=== PATIENT | male | born 1995 | race Hispanic/Latino ===

== ENCOUNTER 2017-05-26 11:56 | Observation (INO) | payer SELFPAY ==
[2017-05-26 12:26] LABS: #Basophils 0.1 thou/uL (0.0-0.2); #Eosinphils 0.1 thou/uL (0.0-0.7); #Lymphocytes 3.9 thou/uL (1.20-3.40); #Monocytes 0.7 thou/uL (0.11-0.59); #Neutrophils 3.1 thou/uL (1.40-6.50); %Eosinophils 1.6 % (0.0-10.0); %Lymphocytes 49.6 % (28.0-48.0); %Monocytes 8.7 % (0.0-4.0); Hematocrit 49.2 % (42.0-52.0); Mean Platelet Volume 7.2 fL (7.4-10.4); Red Blood Cell (RBC) Count 5.57 mill/uL (4.00-5.20); White Blood Cell (WBC) Count 7.8 thou/uL (4.8-10.8)
--- NOTE | 2017-05-26 12:45 | RAD ---
CHEST ONE VIEW: HISTORY: Emergency exam. Syncope. Fall. Chest pain. COMPARISON: None. FINDINGS: The lungs are clear. No pneumothorax or effusion. The cardiac silhouette and mediastinal contour i s within normal limits. IMPRESSION: No acute intrathoracic abnormality. POS: [facility]
[2017-05-26] MEDS ORDERED: Diazepam 10 MG/2 ML SYRINGE ONE (12:49)
[2017-05-26 12:50] LABS: ALT (SGPT) 23 U/L (8-55); AST (SGOT) 30 U/L (5-34); Alkaline Phosphatase 92 U/L (Less than 750); Anion Gap 8 mmol/L (10-20); BUN (Urea Nitrogen) 13 mg/dL (8.9-20.6); Bilirubin, Total 0.7 mg/dL (0.2-1.2); Calc. Creatinine Clearance 0 mL/min (70-130); Calcium 9.8 mg/dL (7.8-10.44); Carbon Dioxide 30 mmol/L (22-29); Chloride 102 mmol/L (98-107); Estimated GFR-MDRD Greater than 90; Globulin 3.6 g/dL (2.4-3.5); Protein, Total 8.3 g/dL (6.0-8.3)
[2017-05-26] MEDS ORDERED: Ketorolac Tromethamine 30 MG/ML VIAL ONE (12:50)
[2017-05-26 13:02] LABS: Troponin I 0.057 ng/mL (< 0.028)
[2017-05-26] MEDS ORDERED: ISOVUE-370 76%-LOCM 1 ML ONE (13:33)
[2017-05-26 14:13] LABS: Bilirubin Negative (Negative); Blood, Urine Negative (Negative); Glucose, Urine (Dipstick) Negative (Negative); Ketone, Urine Negative (Negative); Nitrite Negative (Negative); Protein, Urine (Dipstick) Negative (Neg-Trace)
[2017-05-26 14:26] LABS: Amphetamine Not Detected (NotDetected); Methadone Not Detected (NotDetected); Methamphetamine Not Detected (NotDetected)
[2017-05-26] MEDS ORDERED: Acetaminophen 325 MG TAB PO PRN (15:04)
[2017-05-26] MEDS ORDERED: Ondansetron ODT 4 MG TAB PO PRN (15:04)
[2017-05-26] MEDS ORDERED: Nitroglycerin 0.4 MG TAB (25 Tab Bottle) PO PRN (15:04)
[2017-05-26] MEDS ORDERED: Ondansetron HCl/PF 4 MG/2 ML Vial IVP PRN (15:04)
[2017-05-26] MEDS ORDERED: Cyclobenzaprine 10 MG TAB PO PRN ×2 (15:08→21:00)
[2017-05-26 15:11] VITALS: BMI 26.2
[2017-05-26] MEDS ORDERED: Cyclobenzaprine 10 MG TAB PO SCH (15:15)
[2017-05-26] MEDS ORDERED: Aspirin 325 MG TAB PO SCH (15:15)
[2017-05-26 15:40] LABS: Troponin I 0.048 ng/mL (< 0.028)
--- NOTE | 2017-05-26 17:08 | HP-2 ---
DATE OF ADMISSION: 05/26/2017 The patient is seen at 13:45. CODE STATUS: FULL. PRIMARY CARE PHYSICIAN: Dr. Castaneda. ATTENDING PHYSICIAN: Dillon Nieves M.D. RESIDENT: Jennifer Nettles M.D., PGY-3 HISTORIAN: Patient. CHIEF COMPLAINT: Neck pain. HISTORY OF PRESENT ILLNESS: Patient is a pleasant 21-year-old male with no significant past medical history who presents with right neck tension and pain since 2:00 a.m. He states that he woke with neck pain, felt that he had slept strangely on that side. He got out of bed and his mom reports that he fell about short of breath and recovered shortly after. He states that he remembers the incident entirely and denies syncope. He also denies any kind of chest pain during this episode or any convulsive seizure-like activity. The patient states that he was ill with URI type symptoms approximately 1 month ago and his dad has recently been diagnosed with flu. He states that for his neck pain, he applied some BenGay and took a shower and he continued to have neck pain, so he decided to come into the Emergency Department. He does have a significant family history of IL at an early age on the maternal side. His grandfather of an IL at age 47 and several cousins who of IL at age 30 and 41. PAST MEDICAL HISTORY: None. PAST SURGICAL HISTORY: None. ALLERGIES: None. MEDICATIONS: None. FAMILY HISTORY: Maternal grandfather IL at age 47. No history of sudden cardiac at age less than 20. No known history of hypertrophic cardiomyopathy. First cousins of IL at age 30 and 41. SOCIAL HISTORY: Denies tobacco use, smokeless tobacco use. He drinks approximately six pack a week of beer, denies any drug use. He works with his father in [employer]. He does not have any children and is not . As mentioned, his father is recently diagnosed with flu and he was ill approximately 1 month ago. REVIEW OF SYSTEMS: Ten point review of systems was conducted. Pertinent positives are mentioned in the HPI. All others are negative. PHYSICAL EXAMINATION: VITAL SIGNS: Blood pressure is 117/64, pulse 52, respirations 17, T-max 98.4, pulse ox 98% on room air. Current weight is 69.85 kilograms. GENERAL: The patient is alert and oriented x3. He does not appear in distress. Well-developed, well-nourished, appropriately interactive during the interview and exam. EYES: Pupils are equally round and reactive to light and accommodation. Extraocular muscles intact. Conjunctiva within normal limits. ENT: Nasal mucosa and oropharynx moist without erythema. NECK: Supple, no lymphadenopathy, no thyromegaly. Endorses muscular tenderness of the right neck paraspinally. No tenderness to palpation over the spine. Patient states he has difficulty turning his neck to the right side due to pain; however, he is able to turn his neck freely to the left side. CARDIOVASCULAR: Regular rhythm. Rate is slightly bradycardic at 52, 2/6 systolic murmur in the second intercostal space on the left side midclavicular line. No gallops. Radial pulses +2. RESPIRATIONS: Normal effort, no retractions. LUNGS: Clear to auscultation bilaterally. SKIN: Warm and dry, free of cyanosis or lesions. ABDOMEN: Soft and nontender to palpation. Bowel sounds present in all 4 quadrants. EXTREMITIES: No cyanosis, clubbing or edema. MUSCULOSKELETAL: Structure within normal limits. Full range of motion. NEUROLOGIC: No focal deficits. PSYCHIATRIC: Appropriate. LABORATORY DATA AND IMAGIN. White count 7.8, hemoglobin 16.7, hematocrit 49.2, and platelets 271. Sodium 136, potassium 4, chloride 102, bicarbonate 30, BUN 13, creatinine 0.99, glucose 87, calcium 9.8, AST 30, ALT 23, alkaline phosphatase 92, total bilirubin 0.2, total protein 8.3, albumin 4.7. CK was 156, CK-MB 2.1, troponin 0.057. 2. UDS was negative. D-dimer was 0.27, which is negative. 3. EKG showed ST elevation in V2, and V4 through V6. 4. Chest x-ray no acute findings. ASSESSMENT AND PLAN: This is a 21-year-old male with: 1. Elevated cardiac enzymes. The patient states that he does not have any chest pain and does not endorse any history of chest pain prior to arriving to the hospital. We will place him under observation on the telemetry unit secondary to these findings and positive EKG findings. Patient will receive aspirin and statin. We will continue to trend his troponins and CK-MB. Differential includes pericarditis, myocarditis versus acute coronary syndrome. His UDS was negative as well as D-dimer and CK. Cardiology consulted as well. CTA of neck to rule out dissection which was negative. 2. New cardiac murmur, we will obtain an echocardiogram. 3. Neck strain. We will give the patient Flexeril for his pain. Disposition and length of stay is less than 2 days. Symptomatic medications will be provided. History and physical exam as well as management was discussed with Dr. Nieves. GABY
[2017-05-26 18:42] LABS: Troponin I 0.046 ng/mL (< 0.028)
--- NOTE | 2017-05-26 20:33 | CT ---
CT ANGIO NECK WITH IV CONTRAST AND 3D POSTPROCESSIN05/26/17 HISTORY: Neck pain. Presyncope. Concern for right sided dissection. FINDINGS: There is good flow and normal caliber of the common carotid, internal carotid, external carotid, and vertebral arteries. A dominant left vertebral artery is present. The visualized portions of the int racranial vertebrobasilar and carotid systems are normal. No evidence of dissection or stenosis is s een. Alignment of the vertebral bodies is normal. The visualized lung barrera are clear. IMPRESSION: Normal exam. This study was interpreted in consultation with Dr. Meg Avina (neuroradiologist) who concurs. POS: [facility]
[2017-05-26] MEDS ORDERED: Atorvastatin Calcium 40 MG TAB PO SCH (21:00)
[2017-05-27 05:05] LABS: Anion Gap 8 mmol/L (10-20); BUN (Urea Nitrogen) 11 mg/dL (8.9-20.6); Calc. Creatinine Clearance 140 mL/min (70-130); Calcium 9.3 mg/dL (7.8-10.44); Carbon Dioxide 28 mmol/L (22-29); Chloride 106 mmol/L (98-107); Cholesterol 109 mg/dl (< 200 Desired); Estimated GFR-MDRD Greater than 90; LDL Cholesterol, Calculated 56 mg/dL
--- NOTE | 2017-05-27 06:06 | CON ---
DATE OF CONSULTATION: 05/26/2017 ROOM NUMBER: [id number] REFERRING PHYSICIAN: Jennifer Nettles MD REASON FOR CARDIOLOGY CONSULTATION: Elevated troponin. HISTORY OF PRESENT ILLNESS: Mr. Kowalski is a 21-year-old male with no significant medical history, presented to emergency department after near syncopal episode. He started having sharp pain in his right neck today around 10:00 a.m. At that time, he started having shortness of breath, hard to breathe which caused him almost blacked out. After the episode, he took Tylenol 3 for the pain control that did not improve his symptoms so he decided to present to the emergency department. He denies any chest pain or discomfort in his chest, palpitation or fluttering in his chest, dizziness, lightheadedness , nausea, vomiting or numbness in the left arm during the episode. He denies any head trauma or any muscle pain or any injury prior to this episode. During the initial Cardiology's consult assessment, he denies any shortness of breath or dizziness, lightheadedness, near syncope episode or any other Cardiology complaints. He still complained of mild to moderate pain, sharp pain in his right neck. He could get up to the wheelchair without any difficulties except the neck pain today. PATIENT MEDICAL HISTORY: Bilateral wrist fracture. At that time, he was prescribed Tylenol #3 which he uses today. FAMILY HISTORY: Noncontributory. SOCIAL HISTORY: Patient denies any tobacco abuse or illicit drug abuse. He enjoys drinking occasionally with his family and friends. ALLERGIES: No known drug allergy. CURRENT MEDICATIONS: He does take any medication at this time. REVIEW OF SYSTEMS: The following complete review of systems was negative, unless otherwise mentioned in the HPI or below. Constitutional: Weight loss or gain, sense of well being, ability to conduct usual activities, exercise tolerance. Skin: Rash, itching, change in hair growth or loss, nail changes, breast lumps, tenderness, swelling, nipple discharge. Eyes: Vision change, double vision, tearing, blind spots, pain. HEENT: Headaches, vertigo, lightheadedness, nose bleeding, cold, obstruction, discharge, dental difficulty , gingival bleeding, denture, neck stiffness, pain, tenderness, mass in the thyroid or other areas. Cardiovascular: Precordial pain, substernal distress, palpitations, syncope, dyspnea on exertion, orthopnea, nocturnal dyspnea, edema , cyanosis, hypertension, heart murmur, varicosis, claudication. Respiratory: Pain, shortness of breath, wheezing, stridor, cough, hemoptysis, fever or night sweats. Gastrointestinal: Poor appetite, dysphagia, indigestion, abdominal pain, heartburn, eructation, nausea, vomiting, jaundice, constipation, diarrhea , blood in stool, or recent change in the bowel habit. Genitourinary: Urgency , frequency, dysuria, nocturia, hematuria, polyuria, oliguria, unusual color of urine. Musculoskeletal: Extremities: Except his neck, negative of pain, swelling, redness or heat of muscle or joint, limitation on motion, muscular weakness, atrophy or cramps. Neurologic: Conversion, seizure, paralysis, tremor, incoordination, difficulty with memory or speech. Psychiatric: Emotional problem, anxiety, depression, previous psychiatric care, unusual perceptions, hallucinations. PHYSICAL EXAMINATION: VITAL SIGNS: Blood pressure 135/65, respiratory rate 16, pulse 58. O2 sat 99% , temperature 98.4. GENERAL: Well-developed, well-nourished without any acute distress. HEENT: Normocephalic, atraumatic. EYES: Extraocular muscle movements are intact. ENT: Oral and nose mucosa are moist without lesions. NEUROLOGIC: Alert, oriented x4, awake. Normal affect. Nonfocal. PSYCHIATRIC: Mood and affect are normal. The neck, lungs, cardiovascular, abdomen, musculoskeletal are going to be as follow, because the patient had to leave for stat CT scan. EKG quality assurance monitor chassis showing the sinus rhythm with heart rate of 58. LABORATORY DATA: WBC 7.8, hemoglobin 16.7, hematocrit 49.2, platelet 271. D- dimer less than 0.27. Sodium 136, potassium 4.0, BUN 17, creatinine 0.99, AST 30, ALT 23. CK-MB is 12.1, troponin 0.057 and 0.048. Chest x-ray revealed no acute intrathoracic abnormality. At this moment, he is undergoing a CTA at the neck. ASSESSMENT AND PLAN: 1. Near syncope which is according to the patient's report and symptom, the patient seems to having the vasovagal syncope episode around 10:00 today. At this time, the patient's condition is stable. We would like to continue to monitor. 2. Indeterminate troponin level. This level was not likely elevated to the ___ __ because due to the normal CK-MB level. 3. Neck pain. Patient is undergoing CT scan at this moment and managed by the primary care doctor. Patient is on the Flexeril as needed. Thank you very much for allowing the Cardiology Service to participate in the care of this patient. We will follow along with the patient care team and make further recommendations as appropriate. GABY
--- NOTE | 2017-05-27 06:10 | PDOC.FM ---
- Subjective Subjective: Mr. Kowalski is doing well this morning, has no complaints. Had no acute events overnight. Denies any chest pain, dyspnea, n/v/d/abd pain, diaphoresis, LE edema. Scheduled for stress test and echo this morning. - Objective Vital Signs & Weight: Vital Signs (12 hours) Temp Pulse Resp BP BP Pulse Ox 05/27/17 04:15 97.5 F L 43 L 18 105/58 L 98 05/26/17 23:49 97.7 F 44 L 16 105/53 L 97 05/26/17 19:30 98.5 F 52 L 16 05/26/17 19:18 98.5 F 52 L 16 125/62 98 05/26/17 18:48 98 Weight Weight 71.372 kg I&O: 05/25/17 05/26/17 05/27/17 06:59 06:59 06:59 Intake Total 240 Output Total 350 Balance -110 Result Diagrams: 05/26/17 12:12 05/27/17 04:17 EKG Reviewed by me: Yes <Mark Torres - Last Filed: 05/27/17 08:50> - Objective Vital Signs & Weight: Vital Signs (12 hours) Temp Pulse Resp BP BP BP BP 05/27/17 07:57 116/56 L 131/63 120/58 L 05/27/17 07:49 98.0 F 49 L 18 05/27/17 07:13 98.0 F 49 L 18 120/58 L 05/27/17 04:15 97.5 F L 43 L 18 105/58 L 05/26/17 23:49 97.7 F 44 L 16 105/53 L Pulse Ox 05/27/17 07:57 05/27/17 07:49 05/27/17 07:13 98 05/27/17 04:15 98 05/26/17 23:49 97 Weight Weight 157 lb 5.573 oz I&O: 05/26/17 05/27/17 05/28/17 06:59 06:59 06:59 Intake Total 240 Output Total 350 Balance -110 Result Diagrams: 05/26/17 12:12 05/27/17 04:17 <Aravind Gonzales - Last Filed: 05/27/17 11:24> Phys Exam - Physical Examination Constitutional: NAD HEENT: moist MMs, sclera anicteric Neck: no JVD, supple, full ROM Respiratory: no wheezing, no rales, no rhonchi, clear to auscultation bilateral Cardiovascular: RRR 2/6 systolic murmur Gastrointestinal: soft, non-tender, no distention, positive bowel sounds Musculoskeletal: no edema, pulses present Neurological: non-focal, normal sensation, moves all 4 limbs Psychiatric: normal affect, A&O x 3 <Mark Torres - Last Filed: 05/27/17 08:50> Dx/Plan (1) Cardiac enzymes elevated Code(s): R74.8 - ABNORMAL LEVELS OF OTHER SERUM ENZYMES Status: Acute Plan: Troponins: 0.057, 0.048, 0.[address] elevations in V2, V4-6 No recent or past history of chest pain, presents with neck pain and fam hx of early UT Started on Statin and Aspirin, PRN nitro CTA neck neg, CXR neg -cardiology consults -echo ordered -stress test this morning -continue monitoring symptoms and vitals (2) Newly recognized heart murmur Code(s): R01.1 - CARDIAC MURMUR, UNSPECIFIED Status: Acute Plan: Cardiology consulted and Echo ordered (3) Neck strain Code(s): S16.1XXA - STRAIN OF MUSCLE, FASCIA AND TENDON AT NECK LEVEL, INIT Status: Acute Plan: Flexeril for pain <Mark Torres - Last Filed: 05/27/17 08:50> Attending Addendum - Attending Addendum I personally evaluated the patient and discussed the management with Dr. Torres I agree with the History, Examination, Assessment and Plan documented above with any addition or exceptions noted below. Interesting case of 21 year old who presents with neck pain that appears to be muscular. While here, he got an EKG and troponin. The EKG has increased voltage and some precordial ST elevation V2-5. He also has an elevated troponin. Family history of early cardiac in 30's and 40's in grandfather and cousins. PE shows an RV lift and 2/6 JESSICA along aortic outflow track that disappears with valsalva. I think he has HOCM. He has a stress echo today. We have discussed this with cardiology, and will reassess him after the test. <Aravind Gonzales - Last Filed: 05/27/17 11:24>
--- NOTE | 2017-05-27 06:21 | HP ---
DATE OF ADMISSION: 05/26/2017 CHIEF COMPLAINT: Neck pain and fall. HISTORY OF PRESENT ILLNESS: This is a 21-year-old male with no previous past medical history who woke up this morning with severe right-sided aching sharp neck pain that did not radiate and was worse with any movement towards that side and better with no movement of the head. He was walking in his house when he looked to the right and felt very severe pain and immediately went to ground. He says he remembers again there, but his family is not sure about that. At that time, he is also experiencing perioral numbness and shortness of breath that lasted for sometime after the episode. He denies any other neurologic symptoms such as headache, vision changes, visual field issues, dysarthria, dysphagia, facial numbness besides the perioral area, loss of bowel or bladder incontinence, or any tongue biting. He was seen in the ED and in the ED, had a normal chest x-ray, but then had subsequently elevated troponin, and was admitted to the service. REVIEW OF SYSTEMS: A 12 point review of systems is negative except as specified in the HPI. For a complete review of systems, please see the resident 's H\T\P. PAST MEDICAL HISTORY: Negative. PAST SURGICAL HISTORY: Negative. SOCIAL HISTORY: Denies tobacco, ethanol or drug use. MEDICATIONS: None. ALLERGIES: No known drug allergies. FAMILY HISTORY: Positive for a couple of his cousins that have had early onset heart disease including a 31-year-old evidently had a PA while having a seizure and subsequently passed, a cousin that had PA at 44 and passed, first degree relative with a CABG in the 40s. PHYSICAL EXAMINATION: VITAL SIGNS: Temperature 98.4, pulse 48, respirations 16, 99% on room air, and BP 135/65. GENERAL: In no acute distress, resting comfortably in bed with deviation of the head, favoring the right side. EYES: No icterus or injection. ENT: Moist mucous membranes. No oral lesions. CARDIOVASCULAR: Regular rate and rhythm. Maybe a 1/6 systolic ejection murmur , does not change with augmentation maneuvers. He has no carotid bruit. RESPIRATORY: Clear to auscultation bilaterally without wheeze, rales or rhonchi. GASTROINTESTINAL: Bowel sounds positive. Nontender to palpation. GENITOURINARY: Deferred. MUSCULOSKELETAL: Again, he is having tenderness along either sternocleidomastoid. He refuses to turn his head to the right and says as long as he is sitting still, he is not hurting too bad. No reproducible chest wall tenderness. No other deformity or contracture. NEUROLOGIC: Cranial nerves II-XII intact and symmetric and each tested in detail, unable to fully assess cervical range of motion because of previously mentioned pain. Motor is 5/5 test in all distributions upper and lower extremity. Sensation is intact to light touch throughout as well. DTRs of brachial and patellar 2/4. No clonus in lower extremities. Coordination is normal. LABORATORY DATA: CBC with a normal white count, hematocrit and platelets. Coags with a D-dimer less than 0.27. Chemistry with a sodium 136, potassium 4, chloride 102, carbon dioxide 30, BUN 13, creatinine 0.99. CK 156. Initial troponin 0.057. Urine is negative. Urine drug screen is negative. LFTs are reassuring. Chest x-ray personally reviewed. It is clear without infiltrate or pneumothorax. The neck is not well visualized. ASSESSMENT AND PLAN: This is a 21-year-old male with: 1. Right-sided neck pain. Wide differential including just torticollis or muscle strain, cervical trauma, carotid dissection. With associated numbness, I am certainly more concerned about neurologic cause. I have low suspicion of dissection of the arch, but in light of the pain, we do need to really start to discuss with Radiology, I feel the best test to be a CTA of the neck. We will go ahead and consult. 2. Elevated troponin. The patient does not have any immediate cause for this. We will go ahead and consult Cardiology. Upon review of the EKG, I feel likely benign early repolarization, but we will obtain a TTE as well. We will go ahead and start on aspirin and statin, which hopefully will not need for some time. We get a lipid panel in the morning. 3. Deep venous thrombosis prophylaxis with sequential compression devices. N.p.o. for now. MTDD
--- NOTE | 2017-05-27 14:36 | PDOC.CTH ---
<Shiela Velasquez - Last Filed: 05/27/17 15:00> Cardiology Progress Note - Subjective The pt was seen and examined. No overnight events. No cardiac complaints. He finished Treadmill stress test without any cardiac complaints. Still complains of pain in his Rt neck with movement - Objective Vital Signs Temp Pulse Resp BP BP BP BP 05/27/17 13:17 05/27/17 11:44 98.5 F 52 L 18 121/75 05/27/17 07:57 116/56 L 131/63 120/58 L 05/27/17 07:49 98.0 F 49 L 18 05/27/17 07:13 98.0 F 49 L 18 120/58 L 05/27/17 04:15 97.5 F L 43 L 18 105/58 L Pulse Ox 05/27/17 13:17 98 05/27/17 11:44 98 05/27/17 07:57 05/27/17 07:49 05/27/17 07:13 98 05/27/17 04:15 98 Weight 157 lb 5.573 oz 05/26/17 05/27/17 05/28/17 06:59 06:59 06:59 Intake Total 240 Output Total 350 Balance -110 - Physical Examination General/Neuro: alert & oriented x3 Neck: no JVD present Lungs: CTA Heart: RRR Abdomen: soft (No edmea) - Telemetry Telemetry Rhythm: SR - Labs Result Diagrams: 05/26/17 12:12 05/27/17 04:17 Troponin/CKMB CK-MB (CK-2) 1.7 ng/mL (0-6.6) 05/26/17 18:03 Troponin I 0.046 ng/mL (< 0.028) H 05/26/17 18:03 - Assessment/Plan 1. Near syncopal episode - No episode during Treadmill stress test. 2. Indeterminate CE - No ECG changed on tele 3. Neck pain - Stable with pain medication; managed by PCP 4. HOCM - Echo result is pending Review of Systems - Review of Systems Constitutional: reports: no symptoms reported EENTM: reports: no symptoms reported Respiratory: reports: no symptoms reported Cardiac (ROS): reports: no symptoms reported ABD/GI: reports: no symptoms reported : reports: no symptoms reported Skin: reports: no symptoms reported Neurological: reports: no symptoms reported <Daisha Wills - Last Filed: 05/27/17 17:16> Cardiology Progress Note - Objective Vital Signs Temp Pulse Resp BP BP BP BP 05/27/17 16:01 98.4 F 53 L 16 116/58 L 05/27/17 13:17 05/27/17 11:44 98.5 F 52 L 18 121/75 05/27/17 07:57 116/56 L 131/63 120/58 L 05/27/17 07:49 98.0 F 49 L 18 05/27/17 07:13 98.0 F 49 L 18 120/58 L Pulse Ox 05/27/17 16:01 97 05/27/17 13:17 98 05/27/17 11:44 98 05/27/17 07:57 05/27/17 07:49 05/27/17 07:13 98 Weight 157 lb 5.573 oz 05/26/17 05/27/17 05/28/17 06:59 06:59 06:59 Intake Total 240 Output Total 350 900 Balance -110 -900 - Labs Result Diagrams: 05/26/17 12:12 05/27/17 04:17 Troponin/CKMB CK-MB (CK-2) 1.7 ng/mL (0-6.6) 05/26/17 18:03 Troponin I 0.046 ng/mL (< 0.028) H 05/26/17 18:03 - Assessment/Plan I have seen and evaluated the pt. I reveiwed the ECH and the stress test. Both are nl. No evidence of HOCM. Cardiac status is stable . Okay to d/c pt. to home . F/U with primary MD.
--- NOTE | 2017-05-27 16:01 | NM ---
MYOCARDIAL PERFUSION STUDY: DATE: 05/27/17. PROVIDED CLINICAL HISTORY: Abnormal troponin level. RADIOPHARMACEUTICAL: 30 mCi Technetium 99m labeled sestamibi IV stress. 9 mCi Technetium 99m labeled sestamibi IV rest. FINDINGS: There is normal, homogeneous distribution of radiotracer throughout the left ventricular myocardium at both stress and stress. Gated data demonstrate normal myocardial wall motion and thickening with calculated LEVF of 70%. TID is 0.98. IMPRESSION: 1. No scintigraphic evidence for ischemia. 2. Left ventricular ejection fraction 70%. POS: [facility]
[2017-05-27 16:05] VITALS: BP 116/58; TEMP 98.4
--- NOTE | 2017-05-28 06:01 | ADD-CON ---
ADDENDUM CARDIOLOGY CONSULTATION Please attach this to the dictation done yesterday by my nurse practitioner, Shiela. DATE OF CONSULTATION: 05/26/2017 INDICATION FOR CONSULTATION: A 21-year-old patient with slightly elevated cardiac enzymes and near syncopal episode. He actually is a very healthy gentleman. He has had workups evaluated. His exam ination is unremarkable. He had an echocardiogram, which shows no evidence of left ventricular hype rtrophy or hypertrophic obstructive cardiomyopathy. The valvular structures normal. He has a alen l ejection fraction. Stress test has been unremarkable, suspect his cardiac enzymes are slightly el evated, either due to his significant exercise in the past or some other etiology that may just be b aseline, but there is no indication of the patient suffered any myocardial infarction, has any evide nce of endocarditis. At this time, examination otherwise unremarkable and the patient should be cammie dy to be discharged home. From my cardiac standpoint, he appears to be very stable. The remainder of the assessment and plan on history and physical done by the nurse practitioner. We have discusse d the patient, I would agree with her assessment and plan of the patient.
--- NOTE | 2017-05-28 06:39 | DIS-2 ---
DATE OF ADMISSION: 05/26/2017 DATE OF DISCHARGE: 05/27/2017 RESIDENT: Mark Torres MD ADMITTING ATTENDING: Dillon Nieves MD DISCHARGE ATTENDING: Aravind Gonzales MD CONSULTS: Cardiology, Arminda Wills MD on 05/26/2017. PROCEDURES: 1. Chest x-ray. Impression: No acute intrathoracic abnormality. 2. CT angiography of the neck. Impression: Normal exam. Study was interpreted in consultation with Dr. Avina, neuroradiologist who concurs. 3. Nuclear medicine stress test. Impression: No scintigraphic evidence for ischemia. Left ventricular ejection fraction of 70%. 4. Echocardiogram on 05/27/2017. Ejection fraction visually estimated at 60%- 65%, normal right ventricular size and function, left atrium is of normal size, normal right atrium size, structurally normal mitral valve, structurally normal aortic valve, mild tricuspid regurgitation. PRIMARY DIAGNOSIS: Elevated cardiac enzymes. SECONDARY DIAGNOSES: 1. Newly recognized heart murmur. 2. Neck strain. DISCHARGE MEDICATIONS: Ibuprofen 800 mg p.o. q.8 hour p.r.n. DISCONTINUED MEDICATIONS: 1. Diazepam 10 mg. 2. Toradol 30 mg. 3. Aspirin 81 mg. 4. Tylenol 650 mg p.o. q.4 hour p.r.n. 5. Nitroglycerin 0.4 mg p.o. q. 5 minute p.r.n. 6. Ondansetron 4 mg p.o. q.6 hour p.r.n. 7. Flexeril 10 mg p.o. t.i.d. p.r.n. 8. Atorvastatin calcium 40 mg p.o. at bedtime. HISTORY OF PRESENT ILLNESS AND HOSPITAL COURSE: Leonard Kowalski is a pleasant 21- year-old male with no past medical history who presented to the ED with a right neck tension and pain since 2:00 a.m. on 05/26/2017. He stated that he woke up at night from the neck pain and felt that he had slept strangely on that side. He got out of bed and his mom reports that he got short of breath and he fell down and recovered shortly thereafter. He states that he remembers the incident entirely and denies passing out. He also denies any kind of chest pain during this episode or any seizure-like activity. The patient states that he was ill with upper respiratory infection type symptoms approximately 1 month ago and his dad has recently been diagnosed with the flu. He states that for his neck pain he applied some BenGay, took a shower, and he continued to have neck pain, so he decided to come into the emergency department. He does have significant family history of myocardial infarction in early age on his maternal side. His grandfather of [place] at 47. Several cousins who have from the [place] at the age of 30 and 41. Upon admission to the hospital, his blood pressure was 117/64, pulse 52, respirations 17, T-max 98.4, pulse ox 98% on room air. Physical exam was significant for heart rate that was slightly bradycardic at 52 and a 2/6 systolic murmur in the second intercostal space on the left side midclavicular line. UDS was negative. EKG showed ST elevation in V2 and V4 through V6. Chest x-ray showed no acute findings. The patient's labs were significant for a D-dimer less than 0.27. Troponin of 0.057, the next 0.48 and 0.46 respectively. TSH was normal at 0.8539. CK-MB was 2.1 and 1.7 respectively. UA was negative. Hemoglobin was 16.7, hematocrit 49.2. The patient was seen by Dr. Wills, carburetor rebuilder and Dr. Wills ordered nuclear medicine stress test, which was normal. Echocardiogram results were read as above. The patient was cleared for discharge from cardiac standpoint by Dr. Wills on 05/27/2017. His episode of shortness of breath and dizziness and falling down was likely secondary to a vasovagal state. The patient had neck pain that was treated with Flexeril throughout the admission. He was discharged on 800 mg of ibuprofen. There is some suspicion that the elevations in troponins and the EKG findings were due to a possible pericarditis , likely secondary to viral infection; however, all workup was normal. Imaging workup was normal. DISPOSITION: Stable. DISCHARGE INSTRUCTIONS: 1. Location: Home. 2. Diet: No restrictions. 3. Activity: As tolerated; 4. Followup: Follow up with Dr. Castaneda, patient's PCP for hospital followup within 1-2 weeks. Thank you very much. I agree with bella findings noted above with the following addendum. His EKG has increased voltage for a 21 year old. His echo is normal, but he does have asymmetric thickening of his left ventricle by almost 0.4 CM. I am concerned that he might have HOCM, and might suggest repeating his echo in 3-5 years. GABY
== END 2017-05-27 17:40 | disposition home or self-care (01) ==
LOC: ERS 11:56 → 2SW 13:40
PROVIDERS: ADMIT Internal Medicine; ATTEND Internal Medicine
DX: M54.2 Cervicalgia (principal); R74.8 Abnormal levels of other serum enzymes; R01.1 Cardiac murmur, unspecified; R55 Syncope and collapse
CPT/HCPCS: 36415; 70498; 71010; 78452; 80048; 80053; 80061; 80306; 81003; 82553; 84443; 84484; 85025; 85379; 93005; 93017; 93306; 94760; 96361; 96374; A9500; G0378; J1885; J3360